=== PATIENT | female | born 1960 | race Caucasian/White ===

== ENCOUNTER 2019-10-28 15:44 | Emergency (ER) | payer OTHER ==
[~2019-10-28] VITALS: Ht 170.2 cm; Wt 81.7 kg
[2019-10-28 18:30] VITALS: BP 113/87
[2019-10-28] MEDS ORDERED: ULTRAM 50MG TAB50 MG PO (18:31)
== END 2019-10-28 18:30 | disposition home or self-care (01) ==
LOC: ER 15:44
DX: M25.562 Pain in left knee (principal); F17.210 Nicotine dependence, cigarettes, uncomplicated; Z88.2 Allergy status to sulfonamides; Z88.1 Allergy status to other antibiotic agents; Z88.8 Allergy status to other drugs, medicaments and biological substances